=== PATIENT | male | born 1940 | race Caucasian/White ===

== ENCOUNTER → 2022-07-13 | Outpatient (CLI) | payer SELFPAY, OTHER ==
--- NOTE | 2022-07-13 07:30 | PET_ITS ---
EXAMINATION: FDG PET-CT INDICATIONS: An 81-year-old male with a history of lymphoma presenting for restaging examination. COMPARISON EXAMINATION: None available INDEX LESION SIZE SUV LUGANO SCORE INTERPRETATION Left perioccipital region 46.1 mm 5.1 5 Fulfills quantitative criteria for viable neoplasm. Carinal, subcarinal mediastinum and bilateral thoracic perihilum 25.6 mm largest 6.8 max 5 Fulfills quantitative criteria for viable neoplasm. Prostate gland right of the midline base 11.8 mm largest 10.8 max X May be further investigated with magnetic resonance imaging secondary to the quantitative degree of uptake. TECHNIQUE: Following the intravenous administration of 12.98 mCi of F-18 deoxyglucose via the right hand, multiplanar image acquisitions of the head, neck, chest, abdomen and pelvis to level of mid-thigh, lower extremities obtained at one hour post radiopharmaceutical administration contemporaneously interpreted with the current CT of the head, neck, chest, abdomen and pelvis to level of mid-thigh, lower extremities dated 07/13/22 via coregistration reveal: SERUM GLUCOSE LEVEL: 103 mg/dl. HEIGHT: 71 inches. WEIGHT: 203 lbs. FINDINGS: Head/Neck: There is no evidence of abnormal increased glucose metabolism in the pharyngeal mucosal space, parapharyngeal space, bilateral-lateral and anterior neck, hypopharynx and distribution of the laryngeal structures. Enhanced radiopharmaceutical concentration noted in the left perioccipital soft tissues generating a calculated maximum standard uptake value of 5.1. The Lugano-Deauville score is 5. The maximum axial diameter of the corresponding metabolic, morphologic abnormality is 46.1 mm. The visualized portion of the cerebral cortical-subcortical structures demonstrate symmetric and preserved glucose metabolism. CHEST: There is an increase in radiopharmaceutical concentration defined in the carinal and subcarinal mediastinum and bilateral thoracic perihilum. The calculated maximum standard uptake value is 6.8. The Lugano-Deauville score is 5. The maximum axial diameter of the largest metabolic, morphologic abnormality is 25.6. Bilateral axillary soft tissue densities with fatty hilus formation are nonglucose avid. ? Prominent tracer concentration is noted in the descending thoracic aorta extending to the abdominal aorta commensurate with activated leukocytes associated with atherosclerotic plaque formation. Pertinent chest CT findings are as follows. There is atherosclerotic calcification defined in the thoracic aorta without evidence of dilatation-aneurysm formation. Coronary arterial calcification is observed. Additional calcified mediastinal soft tissue is ametabolic. There are no parenchymal densities-nodules defined in the right and left hemithorax with quantitatively significant increased FDG uptake. Abdomen/Pelvis: Normal physiologic distribution of the radiopharmaceutical is apparent in the hepatic (3.5) and splenic parenchyma, both renal units, bladder and visualized intestinal tract. Diffuse radiopharmaceutical concentration is noted in all four quadrants of the abdomen and pelvis. There is increased radiopharmaceutical concentration noted in the region of the prostate gland involving the base of the right midline-peripheral zone. The calculated maximum standard uptake value is 10.8. The maximum axial diameter of the metabolic, morphologic abnormality is 11.8 mm. The liver, reveal score is presumably X. Pertinent abdomen and pelvis CT findings are as follows. Calcified granuloma formation is noted in the splenic parenchyma. There is atherosclerotic calcification defined in the abdominal aorta without evidence of dilatation-aneurysm formation. Pelvic arterial calcification is observed. Colonic diverticulosis is noted without evidence of diverticulitis. Beam hardening artifact is noted in the lower pelvic CT acquisitions attributed to a right hip arthroplasty. Subcentimeter bilateral inguinal soft tissue densities are nonglucose avid. Skeletal: Degenerative changes are noted in the cervical, thoracic and lumbar spine. There is no visualized sclerotic-lytic changes manifest on review of the appendicular-axial skeletal structures. PET/PET/CT Tumor Base -Thigh Init IMPRESSION: 1. ABNORMAL EXAMINATION INDICATIVE OF MALIGNANT-VIABLE NEOPLASM. 2. Increased radiopharmaceutical concentration defined in the left perioccipital region and mediastinal and bilateral thoracic perihilum fulfill quantitative criteria for viable neoplasia. (Joshua et al, Journal of Clinical Oncology 32:3059, 2014). 3. Enhanced tracer uptake visualized in the base of the prostate gland to the right of midline may be further investigated with magnetic resonance imaging if clinically indicated. Electronic Signature Martir Hernandez D.O. Accurate Quantification of SUVs and standardized LUGANO-DE[place]UVILLE scores specific to lymphoma FDG PET-CT study interpretation for this report are calculated using the exclusive [employer]. ([place] Patent No. 10, 674, 983 B2 [phone] [place] patent [phone]). Standardization and correction of the FDG SUV metric via [employer] technology allow for vendor non-specific objective quantitative examination comparison and optimization of the sensitivity and specificity of the FDG PET-CT examination. Electronically Signed: Martir Hernandez, at 22:18 EST ,
== END | disposition home or self-care (01) ==
PROVIDERS: PCP Family Medicine
DX: C83.38 Diffuse large B-cell lymphoma, lymph nodes of multiple sites (principal)
CPT/HCPCS: 78815; A9552

== ENCOUNTER → 2022-09-28 | Outpatient (CLI) | payer SELFPAY, OTHER ==
--- NOTE | 2022-09-28 08:00 | PET_ITS ---
EXAMINATION: FDG PET-CT INDICATIONS: An 81-year-old male with a history of lymphoma presenting for restaging examination. COMPARISON EXAMINATION: Prior FDG PET CT study dated 07/13/22. INDEX LESION SIZE SUV LUGANO SCORE INTERPRETATION PERSISTENT: Left roger-occipital region 19.9 mm comp to 25.6 mm 2.8 comp to 5.1, 07/13/22 4 comp to 5, 07/13/22 Fulfills quantitative criteria for viable neoplasm, interim metabolic improvement-quantitative partial metabolic response. PERSISTENT: Mediastinum and thoracic perihilum 18.1 mm comp to 25.6 mm 5.5 comp to 6.8, 07/13/22 5 or X Most likely representing reactive adenopathy with minimal interval change in the interim. PERSISTENT: Prostate gland right of the midline 10.5 mm comp to 11.8 mm 6.1 comp to 10.8, 07/13/22 Fulfills quantitative criteria for viable neoplasm, correlation with magnetic resonance imaging recommended if not previously obtained. TECHNIQUE: Following the intravenous administration of mCi of F-18 deoxyglucose via the right antecubital fossa, multiplanar image acquisitions of the head, neck, chest, abdomen and pelvis to level of mid-thigh, lower extremities obtained at one hour post radiopharmaceutical administration contemporaneously interpreted with the current CT of the head, neck, chest, abdomen and pelvis to level of mid-thigh, lower extremities dated 09/28/22 via coregistration and prior FDG PET CT study dated 07/13/22 reveal: SERUM GLUCOSE LEVEL: mg/dl. HEIGHT: inches. WEIGHT: lbs. FINDINGS: Head/Neck: Persistent increased radiopharmaceutical concentration is noted in the left perio-occipital region generating a current calculated maximum standard uptake value of 2.8 compared to 5.1 demonstrated on the previous examination dated 07/13/22. The Lugano score is 4 compared to 5. The maximum axial diameter of the metabolic abnormality is 19.9 mm compared to 25.6 mm. The visualized portion of the cerebral cortical-subcortical structures demonstrate symmetric and preserved glucose metabolism. CHEST: Redefined increased radiopharmaceutical concentration manifest in the mediastinal structures and bilateral thoracic perihilum. The current calculated maximum standard uptake value is 5.5 compared to 6.8 defined on the prior examination dated 07/13/22. The Lugano-Deauville score is 5 or X if not associated with the patient?s lymphoma. The maximum axial diameter of the largest corresponding metabolic abnormality is 18.1 mm compared to 25.[address] findings are as follows. There is atherosclerotic calcification defined in the thoracic aorta without evidence of dilatation-aneurysm formation. Coronary arterial calcification is observed. Abdomen/Pelvis: There is persistent increased radiopharmaceutical concentration noted in the prostate gland to the right of the midline involving the base. The current calculated maximum standard uptake value is 6.1 compared to 10.8. The maximum axial diameter of the metabolic, morphologic abnormality is 10.5 mm compared to 11.8 mm. Normal physiologic distribution of the radiopharmaceutical is apparent in the hepatic (4.3/3.5) and splenic parenchyma, both renal units, bladder and visualized intestinal tract. Diffuse radiopharmaceutical concentration is noted in all four quadrants of the abdomen and pelvis. Otherwise the previously defined morphologic-anatomic changes described on the prior FDG PET-CT report dated 07/13/22, are essentially unchanged on the current examination. Skeletal: Degenerative changes are noted in the cervical, thoracic and lumbar spine. There is no visualized sclerotic-lytic changes manifest on review of the appendicular-axial skeletal structures. PET/PET/CT Tumor Base -Thigh Subs IMPRESSION: 1. ABNORMAL EXAMINATION INDICATIVE OF MALIGNANT-VIABLE NEOPLASM. 2. Increased radiopharmaceutical concentration redefined in the left roger-occipital region continues to fulfill quantitative criteria for viable neoplasm with single point technique. 3. Enhanced tracer uptake noted in the mediastinum and thoracic perihilum likely represents reactive adenopathy secondary to the unchanged uptake demonstrated with interventional treatment. 4. Redefined increased radiopharmaceutical concentration manifest in the prostate gland may be further investigated with magnetic resonance imaging. 5. Overall, compared to the prior FDG PET CT study dated 07/05/22, there is persistent viable neoplasm noted in the left roger-occipital region manifesting an interval quantitative partial metabolic response. Electronic Signature Martir Hernandez D.O. Accurate Quantification of SUVs and standardized LUGANO-[place]UVIL[place] scores specific to lymphoma FDG PET-CT study interpretation for this report are calculated using the exclusive [employer]. (U.S. Patent No. [id number] 674, 983 B2 [phone] [place] patent [phone]). Standardization and correction of the FDG SUV metric via [employer] technology allow for vendor non-specific objective quantitative examination comparison and optimization of the sensitivity and specificity of the FDG PET-CT examination. Electronically Signed: Martir Hernandez, at 7:40 EDT ,
== END | disposition home or self-care (01) ==
LOC: ONC 07:40
PROVIDERS: PCP Family Medicine; Referring Provider Internal Medicine Hematology & Oncology; Visit Provider Internal Medicine Hematology & Oncology
DX: C82.18 Follicular lymphoma grade II, lymph nodes of multiple sites (principal)
CPT/HCPCS: 78815; A9552

== ENCOUNTER → 2022-10-28 | Outpatient (CLI) | payer OTHER, SELFPAY ==
[2022-10-28 14:23] LABS: PSA,Total- Diagnostic 3.82 ng/mL (0.0-4.0)
== END | disposition home or self-care (01) ==
PROVIDERS: PCP Family Medicine; Referring Provider Urology; Visit Provider Urology
DX: N40.2 Nodular prostate without lower urinary tract symptoms (principal)
CPT/HCPCS: 36415; 84153